=== PATIENT | male | born 1990 | race African-American/Black ===

== ENCOUNTER 2020-12-11 17:10 | Emergency (ER) | payer OTHER ==
[~2020-12-11] VITALS: Ht 165.1 cm; Wt 104.3 kg
[2020-12-11] MEDS ORDERED: ONDANSETRON HCL INJ 2MG/ML 2ML 2 MG/ML VIAL ONE (18:28)
[2020-12-11] MEDS ORDERED: ONDANSETRON HCL INJ 2MG/ML 2ML 2 MG/ML VIAL IV STA (19:19)
[2020-12-11] MEDS ORDERED: LISINOPRIL10 MG PO (19:22)
[2020-12-11] MEDS ORDERED: FUROSEMIDE40 MG PO (19:22)
[2020-12-11] MEDS ORDERED: METOPROLOL TAR100 MG PO (19:22)
== END 2020-12-11 20:24 | disposition home or self-care (01) ==
LOC: FSED 18:00
DX: U07.1 COVID-19 (principal); I11.0 Hypertensive heart disease with heart failure; I50.9 Heart failure, unspecified; Z90.49 Acquired absence of other specified parts of digestive tract
CPT/HCPCS: 71045; 80048; 80076; 81003; 82553; 84484; 85025; 87400; 93005; 96374; 99283; J2405